=== PATIENT | female | born 1990 | race Caucasian/White ===

== ENCOUNTER 2024-12-24 15:43 | Emergency (ER) | payer SELFPAY ==
[2024-12-24] MEDS ORDERED: Sodium Chloride 0.9% 10 ML Syringe FLUSH PRN (16:03)
[2024-12-24 16:15] LABS: BASOPHILS ABSOLUTE AUTO 0.0 K/mm3 (0.0-0.2); BASOPHILS PERCENT AUTO 0.4 % (0.0-1.0); EOSINOPHILS ABSOLUTE AUTO 0.1 K/mm3 (0.0-0.4); EOSINOPHILS PERCENT AUTO 0.9 % (0.0-6.0); IMMATURE GRAN ABSOLUTE AUTO 0.02 K/mm3 (0.00-0.05); IMMATURE GRAN PERCENT AUTO 0.2 % (0.0-0.4); LYMPHOCYTES ABSOLUTE AUTO 2.6 K/mm3 (1.0-4.8); LYMPHOCYTES PERCENT AUTO 25.6 % (24.0-44.0); MEAN PLATELET VOLUME 8.9 fl (9.4-12.3); MONOCYTES ABSOLUTE AUTO 0.5 K/mm3 (0.0-0.8); MONOCYTES PERCENT AUTO 5.4 % (0.0-8.0); NEUTROPHILS ABSOLUTE AUTO 6.8 K/mm3 (1.8-7.7); NEUTROPHILS PERCENT AUTO 67.5 % (41.0-71.0); NRBC ABSOLUTE 0.00 (0.00-0.02); NRBC PERCENT 0.0 % (0.0-0.2); PLATELET COUNT,PLT 363 K/mm3 (150-400); RED BLOOD CELL COUNT 5.20 M/mm3 (4.10-5.30); WHITE BLOOD CELL COUNT,WBC 10.06 K/mm3 (3.9-11.3)
[2024-12-24] MEDS: diphenhydrAMINE 50 MG/ML SDV IVPUSH ONE (16:20)
[2024-12-24] MEDS: Ketorolac 30 MG/ML SDV IVPUSH ONE (16:20)
[2024-12-24 16:38] LABS: INR 0.97
[2024-12-24 16:39] LABS: PTT,PARTIAL THROMBOPLSTIN TIME 26.1 SECONDS (21.7-31.4)
[2024-12-24 16:40] LABS: A/G RATIO 0.8 (1-2); ALANINE AMINOTRANSFERASE,ALT 36.0 U/L (14-59); ASPARTATE AMNIOTRANSFERASE,AST 25.0 U/L (15-37); BILIRUBIN TOTAL 0.8 mg/dL (0.2-1.0); BLOOD UREA NITROGEN,BUN 11.0 mg/dL (7-18); CARBON DIOXIDE,CO2 24.0 mEq/L (21-32); CHLORIDE,CL 102.0 mEq/L (98-107); CREATININE 0.9 mg/dL (0.55-1.02); EST CRCL DRUG DOSING (CG) 78.51 mL/min; ESTIMATED GFR 86.0 mL/min (>60); GLUCOSE RANDOM 103.0 mg/dL (70-99); POTASSIUM,K 3.7 mEq/L (3.5-5.1); PROTEIN TOTAL,TP 8.3 g/dl (6.4-8.2); SODIUM,NA 136.0 mEq/L (136-145)
== END 2024-12-24 18:46 | disposition home or self-care (01) ==
LOC: JD.ED 15:43
DX: R51.9 Headache, unspecified (principal)
CPT/HCPCS: 36415; 70450; 80053; 85025; 85610; 85730; 96374; 96375; 99284; J1200; J1885; J2765